=== PATIENT | male | born 1995 | race Caucasian/White ===

== ENCOUNTER 2019-09-30 14:45 | Emergency (ER) | payer BC ==
[2019-09-30 15:39] LABS: Influenza A Molecular Negative (Negative); Influenza B Molecular Negative (Negative)
[2019-09-30] MEDS ORDERED: NS 0.9% 1000 ML** 1,000 ML IV ONE (16:15)
[2019-09-30] MEDS ORDERED: diPHENhydraMINE PO* 50 MG PO ONE (16:16)
--- NOTE | 2019-09-30 16:16 | ED ---
Influenza-Like Illness - HPI Summary HPI Summary: This pt is a 24 Y/O M presenting to [facility] with a CC of influenza-like symptoms. He states that the symptoms started 09/28/2019 with stomach cramping, nausea, and diarrhea. His abdominal pain is rated an 8/10 in severity. He states that the stool was mucusy at first. He states that he has a fever, sore throat, cough , headache, and a diffuse rash over his body. He states that he has been taking APAP and DayQuil. He states that he has a PMHx of GERD. He has no aggravating or alleviating factors. He denies any current tobacco use. - History of Current Complaint Chief Complaint: EDFluSymptoms Time Seen by Provider: 09/30/19 15:49 Hx Obtained From: Patient Onset/Duration: Sudden Onset, Lasting Days - 2, Still Present Severity: Severe Associated Signs & Symptoms: Fever, Cough, Sore Throat, Headache, Diarrhea - Allergy/Home Medications Allergies/Adverse Reactions: Allergies Allergy/AdvReac Type Severity Reaction Status Date / Time No Known Allergies Allergy Verified 09/30/19 14:50 PMH/Surg Hx/FS Hx/Imm Hx Previously Healthy: Yes Endocrine/Hematology History: Denies: Hx Diabetes Cardiovascular History: Denies: Hx Hypertension Respiratory History: Denies: Hx Pneumonia GI History: Reports: Hx Gastroesophageal Reflux Disease - Cancer History Hx Chemotherapy: No Hx Radiation Therapy: No - Surgical History Surgical History: None - Immunization History Immunizations Up to Date: Yes Infectious Disease History: No Infectious Disease History: Denies: Traveled Outside the [place] in Last 30 Days - Family History Known Family History: Positive: Other - [place] - Social History Occupation: Employed Full-time Lives: With Family Alcohol Use: Weekly Alcohol Amount: "once a week maybe" Hx Substance Use: Yes Substance Use Type: Reports: Marijuana Hx Tobacco Use: Yes Smoking Status (MU): Former Smoker Review of Systems Positive: Fever Positive: Sore Throat Positive: Cough Positive: Abdominal Pain, Diarrhea, Nausea Positive: Headache All Other Systems Reviewed And Are Negative: Yes Physical Exam - Summary Physical Exam Summary: VITAL SIGNS: Reviewed. GENERAL: Patient is a well-developed and nourished male who is lying comfortable in the stretcher. Patient is not in any acute respiratory distress. HEAD AND FACE: No signs of trauma. No ecchymosis, hematomas or skull depressions. No sinus tenderness. EYES: PERRLA, EOMI x 2, No injected conjunctiva, no nystagmus. EARS: Hearing grossly intact. Ear canals and tympanic membranes are within normal limits. MOUTH: Oropharynx within normal limits. NECK: Supple, trachea is midline, no adenopathy, no JVD, no carotid bruit, no c- spine tenderness, neck with full ROM. pharyngeal erythema no exudates. CHEST: Symmetric, no tenderness at palpation. LUNGS: Clear to auscultation bilaterally. No wheezing or crackles. CVS: Regular rate and rhythm, S1 and S2 present, no murmurs or gallops appreciated. ABDOMEN: Soft, non-tender. No signs of distention. No rebound, no guarding, and no masses palpated. Bowel sounds are normal. EXTREMITIES: FROM in all major joints, no edema, no cyanosis or clubbing. NEURO: Alert and oriented x 3. No acute neurological deficits. Speech is normal and follows commands. SKIN: Dry and warm. Diffuse rash on the back and chest that is erythematous rash with irregular borders. No compromise. Triage Information Reviewed: Yes Vital Signs On Initial Exam: Initial Vitals Temp Pulse Resp BP Pulse Ox 98.7 F 68 18 140/87 100 09/30/19 14:47 09/30/19 14:47 09/30/19 14:47 09/30/19 14:47 09/30/19 14:47 Vital Signs Reviewed: Yes Procedures - Sedation Patient Received Moderate/Deep Sedation with Procedure: No Diagnostics - Vital Signs Vital Signs Temp Pulse Resp BP Pulse Ox 09/30/19 14:47 98.7 F 68 18 140/87 100 - Laboratory Lab Results: Lab Results 09/30/19 Range/Units 14:53 Influenza A (Rapid) Negative (Negative) Influenza B (Rapid) Negative (Negative) Result Diagrams: 09/30/19 16:36 09/30/19 16:36 Lab Statement: Any lab studies that have been ordered have been reviewed, and results considered in the medical decision making process. Flu Symptom Course/Dx - Course Assessment/Plan: This pt is a 24 Y/O M presenting to [facility] with a CC of influenza-like symptoms. He states that the symptoms started 09/28/2019 with stomach cramping, nausea, and diarrhea. His abdominal pain is rated an 8/10 in severity. He states that the stool was mucusy at first. He states that he has a fever, sore throat, cough, headache, and a diffuse rash over his body. He states that he has been taking APAP and DayQuil. He states that he has a PMHx of GERD. He has no aggravating or alleviating factors. He denies any current tobacco use. In the physical exam the patient has a rash in the chest and back. The patient reports that he is in the get this type of rash doing a stress or whether changes. Patient doesnt have any respiratory distress, no swelling of the tongue, no swelling of the lips. Test results without any significant abnormality except for sodium of 132, chloride 98, total bili 1.2, CRP is 60. Influenza A and B is negative rapid strep is negative. The patient reported watery diarrhea and some abdominal cramping. In the ED course the patient was given IV fluids, Benadryl and Pepcid for the allergic reaction. I m awaiting for the patient to get the stool for culture and fecal leukocytes. The patient is feeling better. She will be signed out to Dr. Maldonado at shift change. She will follow-up the stool cultures and disposition of this patient. - Diagnoses Provider Diagnoses: Allergic reaction, Diarrhea Discharge ED - Sign-Out/Discharge Documenting (check all that apply): Sign-Out Patient Signing out patient TO: Ann Maldonado - Discharge Plan Referrals: No Primary Care Phys,NOPCP [Primary Care Provider] - - Attestation Statements Document Initiated by Scribe: Yes Documenting Scribe: Hadley Carpio Provider For Whom Raul is Documenting (Include Credential): Palmer Snow MD Scribe Attestation: IHadley, scribed for Palmer Snow MD on 09/30/19 at 1856. Status of Scribe Document: Ready
[2019-09-30 16:42] LABS: Rapid Strep Molecular Negative (Negative)
[2019-09-30 17:02] LABS: ALT 15 U/L (7-52); AST 21 U/L (13-39); Albumin 5.1 g/dL (3.2-5.2); Albumin/Globulin Ratio 2.1 (1-3); Alkaline Phosphatase 47 U/L (34-104); Anion Gap 8 mmol/L (2-11); BUN/Creatinine Ratio 17.1 (8-20); Blood Urea Nitrogen 14 mg/dL (6-24); C Reactive Protein 60.07 mg/L (<8.01); CO2 Carbon Dioxide 26 mmol/L (22-32); Calcium 9.6 mg/dL (8.6-10.3); Chloride 98 mmol/L (101-111); EGFR African American 142.2 (>60); EGFR Non-African American 117.5 (>60); Globulin 2.4 g/dL (2-4); Glucose 97 mg/dL (70-100); Potassium 3.9 mmol/L (3.5-5.0); Sodium 132 mmol/L (135-145); Total Protein 7.5 g/dL (6.4-8.9)
[2019-09-30 17:09] LABS: ABS Lymphocytes 0.6 10^3/ul (1.0-4.8); ABS Monocytes 0.5 10^3/ul (0-0.8); Eosinophil % 0.1 %; Hematocrit 45 % (42-52); Hemoglobin 15.8 g/dL (14.0-18.0); Lymphocyte % 14.5 %; Mean Corpuscular HGB Conc 36 g/dL (31-36); Mean Corpuscular Hemoglobin 30 pg (27-31); Mean Corpuscular Volume 84 fL (80-94); Mean Platelet Volume 7.5 fL (7.4-10.4); Nucleated Red Blood Cells % 0.1; Platelet Count 129 10^3/uL (150-450); Red Blood Count 5.32 10^6 /uL (4.18-5.48); Red Cell Distribution Width 13 % (10-15); White Blood Count 4.1 10^3/uL (3.5-10.8)
[2019-09-30] MEDS ORDERED: Dexamethasone IV* 4 MG/ML 1 ML (4 MG) IV SLOW PU ONE (18:15)
[2019-09-30 18:57] LABS: Urine Appearance Clear; Urine Bilirubin Negative (Negative); Urine Blood 1+ (Negative); Urine Color Straw; Urine Glucose Negative (Negative); Urine Ketones Trace (Negative); Urine Nitrite Negative (Negative); Urine Protein Negative (Negative); Urine Specific Gravity 1.003 (1.010-1.030); Urine Urobilinogen Negative (Negative)
[2019-09-30 19:01] LABS: Urine Bacteria Absent (Absent); Urine Red Blood Cell Trace(0-2/hpf) (Absent); Urine White Blood Cell Absent (Absent)
--- NOTE | 2019-09-30 19:14 | ED ---
Progress - Progress Note Progress Note: 24 y/o M signed out from Dr. nSow upon shift change 09/30/2019 1900 awaiting fecal sample and pending disposition. Course/Dx - Course Course Of Treatment: 24-year-old male with diarrhea, fever, headache, fatigue. Awaiting UA and C. difficile. Urine shows no infection. C. difficile is negative. Patient discharged home with viral syndrome. Advised plenty of fluids and rest. Tylenol ibuprofen. [id number] antidiarrheal medications as needed. Follow up PCP. Follow sooner for any worsening symptoms. - Diagnoses Provider Diagnoses: Viral syndrome Discharge ED - Sign-Out/Discharge Documenting (check all that apply): Patient Departure, Receiving Sign-Out Receiving patient FROM: Palmer Snow - Discharge Plan Condition: Stable Disposition: HOME Patient Education Materials: Viral Syndrome (ED) Referrals: Care [facility] [Outside] - 3 Days Additional Instructions: Follow up with [facility] in 3 days. Return to the Emergency Department for changing or worsening symptoms. - Billing Disposition and Condition Condition: STABLE Disposition: Home - Attestation Statements Document Initiated by Sandraibe: Yes Documenting Scribe: Lina Ac Provider For Whom Raul is Documenting (Include Credential): Ann Maldonado MD Scribe Attestation: I, Lina Ac, scribed for Ann Maldonado MD on 09/30/19 at 2110. Scribe Documentation Reviewed: Yes Provider Attestation: The documentation as recorded by the Lina rebollar accurately reflects the service I personally performed and the decisions made by me, Ann Maldonado MD Status of Scribe Document: Viewed
[2019-09-30 21:09] VITALS: BP 126/63
== END 2019-09-30 21:00 | disposition home or self-care (01) ==
LOC: ED 14:45
DX: T78.40XA Allergy, unspecified, initial encounter (principal); R21 Rash and other nonspecific skin eruption; X58.XXXA Exposure to other specified factors, initial encounter; R19.7 Diarrhea, unspecified; B34.9 Viral infection, unspecified; Z87.891 Personal history of nicotine dependence
CPT/HCPCS: 36415; 80053; 81003; 81015; 83630; 83690; 85025; 86140; 87045; 87046; 87077; 87493; 87651; 87899; 96361; 96374; 99282; A9270-GY; J1100